=== PATIENT | female | born 1955 | race Caucasian/White ===

== ENCOUNTER 2024-09-27 14:55 | Emergency (ER) | payer MEDICARE, OTHER, SELFPAY ==
[2024-09-27 15:08] VITALS: BP 148/83; PULSE 82; RESP 16; TEMP 36.7; O2SAT 97; BMI 25.4
--- NOTE | 2024-09-27 15:12 | CRLHL7_ITS ---
For Patients: As a result of the Century Cures Act, medical imaging exams and procedure reports are released immediately into your electronic medical record. You may view this report before your referring provider. If you have questions, please contact your health care provider. Indication: Fall, pain and swelling Comparison: None available. Technique: AP, lateral, and axial views left elbow were obtained. Findings: There is a nondisplaced lucency overlying the olecranon process without evidence of definite extension to the superficial cortex which may represent a skin fold. No evidence of definite displaced fracture. The joint spaces are grossly preserved. Moderate focal edema within the proximal ulnar soft tissues. Impression: Moderate edema within the ulnar soft tissues. Demonstration of a lucency projecting over the proximal ulna on the lateral projection which may represent a prominent skin fold. No evidence of displaced fracture. Dictated by Jeffrey Putnam MD @ 09/27/2024 3:38:05 PM (Electronically Signed)
--- NOTE | 2024-09-27 16:10 | ED_ITS ---
HPI - Fall General Chief Complaint: Fall/Minor Trauma Stated Complaint: fell on ice this am, hurt left elbow Time Seen by Provider: 09/27/24 16:05 History of Present Illness HPI Narrative: This 69-year-old female comes in with an injury to her left elbow that occurred 1st thing this morning, about 8 hours prior to my visit with her. She slipped on ice and fell onto her left elbow. She states that she did bump her head but does not have any headache or other symptoms other than elbow pain and swelling. She comes in now for evaluation of her elbow. She is not taking any anticoagulants. Related Data Home Medications ?Medication ?Instructions ?Recorded ?Confirmed alendronate 70 mg tablet 70 mg PO 09/27/24 Allergies Allergy/AdvReac Type Severity Reaction Status Date / Time Penicillins Allergy Unknown Verified 09/27/24 15:12 Review of Systems Status of ROS: Reports: 10 or more systems reviewed and unremarkable except as noted in History and below Narrative: Constitutional: No fevers, no weight gain or loss. Eyes: No discharge. No vision changes. HENT: No congestion, no sore throat, no ear pain. Cardiovascular: No chest pain, no palpitations. Respiratory: No shortness of breath, no wheezes, no cough. Gastrointestinal: No abdominal pain, no vomiting, no diarrhea. Genitourinary: No dysuria, no hematuria. Musculoskeletal: Normal range of motion. Left elbow injury as described above. Skin: No rashes, no pruritis. Neurological: No dizziness, weakness, sensory change, speech change. Endo/Heme/Allergies: No bruising or bleeding. No polydipsia. Pysch: no suicidality, no anxiety, no insomnia. All other systems reviewed and are negative. Exam Narrative: Exam Narrative: Constitutional: Well-developed, well-nourished, no acute distress. HEENT: Normocephalic, atraumatic. Neck: Normal range of motion. Nontender. Supple. Heart: Intact distal pulses. Lungs: No chest discomfort. No wheezes, rhonchi, or rales. Abdomen: Nontender. Back: Normal range of motion. Extremities: Normal range of motion of her left elbow. There is a area of hematoma and swelling overlying the olecranon on the left elbow. Skin: Intact. No rash. Warm. No erythema or pallor. Neurologic: No altered sensation. No weakness. Alert and oriented. Psychiatric: No suicidality. No anxiety or depression. No insomnia. Nursing notes and vitals signs are reviewed. Const: Vital Signs, click to edit/add: Vital Signs - 24 hr 09/27/24 15:08 Temperature 98.0 F Pulse Rate [Pulse Oximeter] 82 Respiratory Rate 16 Blood Pressure [Ri ght Upper Arm] 148/83 H Pulse Oximetry 97 Oxygen Delivery Me thod Room Air Course Vital Signs Vital signs: Initial Vital Signs Temperature 98.0 F 09/27/24 15:08 Temperature Source Temporal Artery Scan 09/27/24 15:08 Pulse Rate 82 09/27/24 15:08 Respiratory Rate 16 09/27/24 15:08 Blood Pressure 148/83 H 09/27/24 15:08 Blood Pressure Mean 104 09/27/24 15:08 Blood Pressure Position Sitting 09/27/24 15:08 Pulse Oximetry 97 09/27/24 15:08 Oxygen Delivery Method Room Air 09/27/24 15:08 Vital Signs Temperature 98.0 F 09/27/24 15:08 Pulse Rate 82 09/27/24 15:08 Respiratory Rate 16 09/27/24 15:08 Blood Pressure 148/83 H 09/27/24 15:08 Pulse Oximetry 97 09/27/24 15:08 Oxygen Delivery Method Room Air 09/27/24 15:08 Temperature 98.0 F 09/27/24 15:08 Pulse Rate 82 09/27/24 15:08 Respiratory Rate 16 09/27/24 15:08 Blood Pressure 148/83 H 09/27/24 15:08 Pulse Oximetry 97 09/27/24 15:08 Oxygen Delivery Method Room Air 09/27/24 15:08 MDM - Fall MDM Narrative Medical decision making narrative: This patient comes in with an injury to her left elbow that occurred 1st thing this morning. X-ray imaging by my review and according to radiology report shows no sign of fracture or malalignment. This was reassuring to the patient to states that she will be able to use [id number] medicines as needed and directed. She has good range of motion of her elbow. I did offer a sling which she declined. Discharge Plan Discharge Clinical Impression: Contusion of elbow, left Patient Disposition: Home, Self-Care Condition: Unchanged Additional Instructions: Use [id number] medicines as needed and directed. Increase activity as tolerated. Follow up with MD return if worsening. Prescriptions: No Action alendronate 70 mg tablet 70 mg PO Stand Alone Forms: [employer] Info Instructions
== END 2024-09-27 16:48 | disposition home or self-care (01) ==
LOC: ED 16:25
PROVIDERS: Emergency Provider Emergency Medicine Emergency Medical Services; PCP Physician Assistant
DX: S50.02XA Contusion of left elbow, initial encounter (principal); W00.0XXA Fall on same level due to ice and snow, initial encounter
CPT/HCPCS: 73080; 99283; 99284